=== PATIENT | female | born 1990 | race Caucasian/White ===

== ENCOUNTER 2020-04-23 08:31 | Emergency (ER) | payer BC ==
[2020-04-23 09:07] LABS: APPEARANCE,URINE CLOUDY; BILIRUBIN,URINE NEGATIVE (NEGATIVE); COLOR,URINE AMBER; GLUCOSE, URINE NEGATIVE (NEGATIVE); KETONES,URINE NEGATIVE (NEGATIVE); LEUKOCYTE ESTERASE,URINE SMALL (NEGATIVE); NITRITE,URINE NEGATIVE (NEGATIVE); PROTEIN,URINE 30 mg/dL (NEGATIVE); UROBILINOGEN,URINE NEGATIVE mg/dL (<2.0)
[2020-04-23] MEDS ORDERED: NORMAL SALINE 1000 ML 1,000 ML IV ONE (09:23)
[2020-04-23 09:37] LABS: ABSOLUTE EOSINOPHILS # (AUTO) 0.1 10^3/uL (0.0-0.6); ABSOLUTE LYMPHOCYTES (AUTO) 1.7 10^3/uL (0.5-4.7); ABSOLUTE MONOCYTES (AUTO) 0.5 10^3/uL (0.1-1.4); ABSOLUTE NEUT (AUTO) 7.1 10^3/uL (1.7-8.2); BASOPHILS % (AUTO) 0.4 % (0-2); EOSINOPHILS % (AUTO) 0.8 % (0-6); HEMATOCRIT 39.8 % (36.0-47.0); HEMOGLOBIN 13.9 g/dL (12.0-15.5); LYMPHOCYTES % (AUTO) 18.3 % (13-45); MEAN CORPUSCULAR HEMOGLOBIN 31.6 pg (27.0-33.4); MEAN CORPUSCULAR HGB CONC 34.9 g/dL (32.0-36.0); MEAN CORPUSCULAR VOLUME 91 fl (80-97); PLATELET COUNT 280 10^3/uL (150-450); RED CELL DISTRIBUTION WIDTH 12.5 % (11.5-14.0); SEGMENTED NEUTROPHILS % (AUTO) 75.5 % (42-78); TOTAL CELLS COUNTED % (AUTO) 100 %; WHITE BLOOD COUNT 9.4 10^3/uL (4.0-10.5)
[2020-04-23 09:53] LABS: ALBUMIN 3.9 g/dL (3.5-5.0); ALKALINE PHOSPHATASE 47 U/L (38-126); ANION GAP 8 (5-19); ASPARTATE AMINO TRANSFERASE 27 U/L (14-36); BILIRUBIN,TOTAL 0.5 mg/dL (0.2-1.3); BLOOD UREA NITROGEN 9 mg/dL (7-20); CALCIUM 9.2 mg/dL (8.4-10.2); CARBON DIOXIDE 21 mmol/L (22-30); CHLORIDE 105 mmol/L (98-107); GLUCOSE 102 mg/dL (75-110); POTASSIUM 4.1 mmol/L (3.6-5.0); TOTAL PROTEIN 7.2 g/dL (6.3-8.2)
[2020-04-23] MEDS ORDERED: DEXTROSE 5%-LACTATED RINGERS 1,000 ML IV ONE (10:29)
--- NOTE | 2020-04-23 13:43 | ER Document Report ---
Entered by RAYRAY MCMAHON SCRIBE 04/23/20 1038 Acting as scribe for:DANAY DONAHUE MD ED General - General Chief Complaint: Nausea/Vomiting Stated Complaint: NAUSEA/VOMITING Time Seen by Provider: 04/23/20 09:45 Information source: Patient Notes: This 29 year old female patient presents to the emergency department today with complaints of nausea and vomiting. Patient states she feels dizzy when moving around since yesterday and denies dizziness when laying down. Patient reports vomiting last night and this morning. Patient states she is x21 weeks and denies any vaginal discharge or bleeding. Denies diarrhea, abdominal cramps, fever, chills, headache, or sore throat. Patient states she contacted a Physician by teledoc last night and was told she may have an ear infection ca using her vertigo. - Related Data Allergies/Adverse Reactions: No Known Allergies Allergy (Unverified 04/23/20 09:31) Past Medical History - General Information source: Patient - Social History Smoking Status: Unknown if Ever Smoked Frequency of alcohol use: None Drug Abuse: None Lives with: Family Family History: Reviewed & Not Pertinent Patient has homicidal ideation: No - Medical History Medical History: Negative Past Surgical History: Reports: None Review of Systems - Review of Systems Constitutional: See HPI. denies: Chills, Fever EENT: See HPI. denies: Throat pain Cardiovascular: See HPI, Dizziness Respiratory: No symptoms reported Gastrointestinal: See HPI, Nausea, Vomiting. denies: Abdominal pain, Diarrhea Genitourinary: No symptoms reported Female Genitourinary: See HPI, - x21 weeks. denies: Vaginal discharge, Vaginal bleeding Musculoskeletal: No symptoms reported Skin: No symptoms reported Hematologic/Lymphatic: No symptoms reported Neurological/Psychological: See HPI. denies: Headaches -: Yes All other systems reviewed and negative Physical Exam - Vital signs Vitals: Temp Pulse Resp BP Pulse Ox 97.8 F 83 18 129/78 H 97 04/23/20 08:38 04/23/20 08:38 04/23/20 08:38 04/23/20 08:38 04/23/20 08:38 - General General appearance: Appears well, Alert - HEENT Head: Normocephalic, Atraumatic Eyes: Normal Pupils: PERRL Ears: Normal External canal: Normal Tympanic membrane: Serous effusion - bilateral. No: Bulging Sinus: Other - No frontal sinus tenderness Nasal: Normal Mucous membranes: Dry Pharynx: Normal Neck: Normal - Respiratory Respiratory status: No respiratory distress Chest status: Nontender Breath sounds: Normal Chest palpation: Normal - Cardiovascular Rhythm: Regular Heart sounds: Normal auscultation Murmur: No - Abdominal Inspection: Gravid female - 2nd trimester Distension: No distension Bowel sounds: Normal Tenderness: Nontender - Extremities General upper extremity: Normal inspection. No: Edema General lower extremity: Normal inspection. No: Edema - Neurological Neuro grossly intact: Yes Cognition: Normal Orientation: AAOx4 Speech: Normal - Psychological Associated symptoms: Normal affect, Normal mood - Skin Skin Temperature: Warm Skin Moisture: Dry Skin Color: Normal Course - Re-evaluation Re-evalutation: 04/23/20 13:34 Patient still having nausea and sometimes vomiting with movement. Patient has received 2 L of fluid while in the emergency department so patient is well hydrated at this time. Patient is nontoxic-appearing and hemodynamically stable. Demonstrated to she and her the Apley maneuver for vertigo from benign postural vertigo. Patient tolerated procedure well. And instructed she and her on how to do dismissive maneuver at home. Inasmuch as patient is 21 weeks at at this point in time she is not wanting to take antinausea medications. I explained the patient the Celina maneuver will be helpful as well as using salt on her finger to just quench her nausea as needed. I also advised patient to drink small aliquots of fluid throughout the course of the day and so that she can remain well-hydrated as well as able to take in p.o. food and fluids. - Vital Signs Vital signs: Temp Pulse Resp BP Pulse Ox 97.7 F 78 19 109/72 98 04/23/20 11:34 04/23/20 11:34 04/23/20 11:34 04/23/20 11:34 04/23/20 11:34 - Laboratory Result Diagrams: 04/23/20 09:21 04/23/20 09:21 Laboratory results interpreted by me: 04/23/20 04/23/20 08:50 09:21 Sodium 133.9 L Carbon Dioxide 21 L Urine Protein 30 H Ur Leukocyte Esterase SMALL H 04/23/20 13:37 Urinalysis shows a small amount of leukocyte esterase and there was 3+ bacteria and mucus seen on the urinalysis. Nitrite negative. Patient reports she has no urinary symptoms frequency burning or any kind of malodorous discharge. I explained the patient we will culture her urine and if it turns out that be an infection we will be in touch with her to restart antibiotics. Discharge - Discharge Clinical Impression: Nausea and vomiting, Second trimester , Labyrinthitis, acute viral Condition: Stable Disposition: HOME, SELF-CARE Instructions: Vomiting ([facility]) Additional Instructions: Labyrinthitis Labyrinthitis is a temporary disease of the inner ear. It's sometimes called vestibulitis. It often starts a few days after a cold or virus infection. Symptoms include vertigo (the spinning type of dizziness) or a sense of unsteadiness and nausea. The symptoms usually go away in a couple of days without any treatment. You should rest and keep your head still. The dizziness is worse if you move your head. Closing the eyes usually helps. Don't drive, work with dangerous machinery, or get up on ladders or scaffolds until a few days after the dizziness resolves. Medicine such as meclizine (Antivert, Bonine) can reduce the dizziness and nausea. Tranquilizers (such as diazepam) can suppress your sense of balance, reducing the unpleasantness of the vertigo. Call or return if you develop ear pain, loss of hearing, fever, severe vomiting, or any other new symptom. Discussed with you regarding treatment for labyrinthitis which is often an antihistamine called meclizine. This medication works very well for this condition however inasmuch as you are in your second trimester use of any medication has its risk therefore I am not recommending that you start this medication at this time. I do want you to continue to use small amounts of fluids on a frequent basis to stay well-hydrated and also use of salt just to taste in your mouth to help decrease on nausea so that you may be able to eat without vomiting. Please follow-up with your primary OB gynecology clinic providers regarding if you are having further problems with managing this nausea and vomiting in the face of labyrinthitis. I personally performed the services described in the documentation, reviewed and edited the documentation which was dictated to the scribe in my presence, and it accurately records my words and actions.
[2020-04-23 13:53] VITALS: BP 102/65
[2020-04-23] MEDS ORDERED: MECLIZINE HCL 25 MG TABLET PO ONE (14:20)
== END 2020-04-23 14:57 | disposition home or self-care (01) ==
LOC: ER 08:31
DX: O21.2 Late vomiting of pregnancy (principal); H83.03 Labyrinthitis, bilateral; R42 Dizziness and giddiness; Z3A.21 21 weeks gestation of pregnancy
CPT/HCPCS: 99283; 96360; 96361; 36415; 87086; 85025; 80053; 81001; J7121; J7030

== ENCOUNTER 2020-09-04 18:22 | Inpatient (IN) | payer BC ==
[2020-09-04] MEDS ORDERED: ACETAMINOPHEN 325 MG TABLET PO PRN (18:24)
[2020-09-04] MEDS ORDERED: ZOLPIDEM TARTRATE 5 MG TABLET PO PRN (18:24)
[2020-09-04 19:02] LABS: ABSOLUTE EOSINOPHILS # (AUTO) 0.1 10^3/uL (0.0-0.6); ABSOLUTE LYMPHOCYTES (AUTO) 2.1 10^3/uL (0.5-4.7); ABSOLUTE MONOCYTES (AUTO) 0.6 10^3/uL (0.1-1.4); ABSOLUTE NEUT (AUTO) 7.8 10^3/uL (1.7-8.2); BASOPHILS % (AUTO) 0.2 % (0-2); EOSINOPHILS % (AUTO) 0.9 % (0-6); HEMATOCRIT 37.4 % (36.0-47.0); HEMOGLOBIN 12.7 g/dL (12.0-15.5); MEAN CORPUSCULAR HGB CONC 33.9 g/dL (32.0-36.0); MEAN CORPUSCULAR VOLUME 89 fl (80-97); MONOCYTES % (AUTO) 5.4 % (3-13); PLATELET COUNT 235 10^3/uL (150-450); RED BLOOD COUNT 4.22 10^6/uL (3.72-5.28); RED CELL DISTRIBUTION WIDTH 13.9 % (11.5-14.0); SEGMENTED NEUTROPHILS % (AUTO) 73.5 % (42-78); TOTAL CELLS COUNTED % (AUTO) 100 %; WHITE BLOOD COUNT 10.6 10^3/uL (4.0-10.5)
[2020-09-04 19:02] LABS: APPEARANCE,URINE SLIGHTLY-CLOUDY; BILIRUBIN,URINE NEGATIVE (NEGATIVE); COLOR,URINE YELLOW; GLUCOSE, URINE NEGATIVE (NEGATIVE); KETONES,URINE NEGATIVE (NEGATIVE); LEUKOCYTE ESTERASE,URINE LARGE (NEGATIVE); NITRITE,URINE NEGATIVE (NEGATIVE); PROTEIN,URINE NEGATIVE (NEGATIVE); URINE SPECIFIC GRAVITY 1.005; UROBILINOGEN,URINE NEGATIVE mg/dL (<2.0)
[2020-09-04 19:29] LABS: URINE AMPHETAMINES SCREEN NEGATIVE; URINE BARBITURATES SCREEN NEGATIVE; URINE BENZODIAZEPINES SCREEN NEGATIVE; URINE COCAINE SCREEN NEGATIVE; URINE MARIJUANA (THC) SCREEN NEGATIVE; URINE METHADONE SCREEN NEGATIVE; URINE PHENCYCLIDINE SCREEN NEGATIVE
[2020-09-04] MEDS ORDERED: DINOPROSTONE 10 MG VAGINAL INSERT.SR PV ONE (19:30)
[2020-09-04] MEDS ORDERED: PENICILLIN G POTASSIUM 5,000,000 UNIT in DEXTROSE 5%-WATER 100 ML IV ONE (19:30)
[2020-09-04] MEDS ORDERED: RINGERS SOLUTION,LACTATED 1,000 ML IV ONE (19:30)
[2020-09-04] MEDS ORDERED: OXYTOCIN 10 UNIT/ML VIAL ONE (20:03)
[2020-09-04] MEDS ORDERED: MISOPROSTOL 0.2 MG TABLET ONE (20:03)
[2020-09-04] MEDS ORDERED: DINOPROSTONE 10 MG VAGINAL INSERT.SR ONE (20:04)
[2020-09-04] MEDS ORDERED: LIDOCAINE 1% INJ-PF (10 MG/ML) 30 ML SDV ONE (20:04)
[2020-09-04] MEDS ORDERED: OXYTOCIN/0.9 % SODIUM CHLORIDE 30 UNIT/500 ML RTUINJ ONE (20:04)
[2020-09-04] MEDS: RINGERS SOLUTION,LACTATED 1,000 ML IV PRN (20:11)
--- NOTE | 2020-09-04 20:43 | Admission Physical ---
Datetime Report Generated by CPN: 09/04/2020 20:42 CURRENT ADMISSION Hx Assessment: The History has been Reviewed and is Current Chief Complaint: Scheduled Induction of Labor Indication for Induction: Post Dates Admit Impression : Postterm, Intrauterine Admit Plan: Admit to Unit; Initiate Labor Induction Protocol ALLERGIES Medication Allergies: No Medication Allergies: No Known Allergies (09/04/2020) Latex: No Latex Allergies Food Allergies: n/a Environmental Allergies: Seasonal OBSTETRICAL HISTORY EDC: 08/29/2020 00:00 : 1 Para: 0 Term: 0 : 0 SAB: 0 IAB: 0 Ectopic: 0 Livin Cesareans: 0 VBACs: 0 Multiple Births: 0 Gestational Diabetes: No Rh Sensitization: No Incompetent Cervix: No MARYAN: No Infertility: No ART Treatment: No Uterine Anomaly: No IUGR: No Hx Previous C/S: No Macrosomia: No Hx Loss/Stillborn: No PIH: No Hx : No Placenta Previa/Abruption: No Depression/PP Depression: No PTL/PROM: No Post Hemorrhage: No Current Procedures: Ultrasound; NST Obstetrical History Comments: G1- Current SEE RECORDS Alcohol: No Marijuana : No Cocaine: No Other Illicit Drugs: No Cigarettes: Never Smoker. 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 Heart Disease: No Hosp/Surgery: No Autoimmune Disorder: No Anesthetic Complications: No Kidney Disease: No Abnormal Pap Smear: Yes Neuro/Epilepsy: No Psychiatric Disorders: No Other Medical Diseases: No Hepatitis/Liver Disease: No Significant Family History: No Varicosities/Phlebitis: No Trauma/Violence : No Thyroid Dysfunction: No Medical History Comments: Hx of HPV INFECTIOUS HISTORY Gonorrhea: No Genital Herpes: No Chlamydia: No Tuberculosis: No Syphilis: No Hepatitis: No HIV/AIDS Exposure: No Rash or Viral Illness: No HPV: Yes Infectious History Comments: Hx of HPV PHYSICAL EXAM General: Normal HEENT: Normal Neurologic: Normal Thyroid: Normal Heart: Normal Lungs: Normal Breast: Normal Back: Normal Abdomen: Normal Genitourinary Exam: Normal Extremities: Normal DTRs: Normal Pelvic Type: Adequate Vital Signs: Reviewed; Within Normal Limits VAGINAL EXAM Dilatation: 0 Effacement: 0 Station: -3 Contraction Comments: Irregular MEMBRANES Membranes: Intact Amniotic Fluid Color: Clear FETUS A EGA: 40.6 Monitoring: External US FHR- Baseline: 130 Variability: Moderate 6-25bpm Accelerations: 15X15 Decelerations: None FHR Category: Category I Presentation: Vertex Admit Comment: G1 at 40.6 wks EGA for IOL -Admit to LDR -CEFM and toco -NPO and IVFs: LR at 125 cc/hr after 1 liter bolus -GBS positive, prophylactic antibiotics ordered -Anticipate PLANS FOR LABOR AND DELIVERY Labor and Delivery: None Pain Management: Epidural Feeding Preference: Breast Benefit of Breast Feed Discussed: Yes Circumcision: N/A INFORMED CONSENT Informed Consent Obtained: Vaginal Delivery; Induction of Labor; Vacuum/Forceps Assist; Risks, Benefits and Alternatives Discussed Signature: with User ID: [email or web address] : with User ID: [email or web address]
[2020-09-05] MEDS ORDERED: PENICILLIN G POTASSIUM 5,000,000 UNIT in DEXTROSE 5%-WATER 100 ML IV PRN (09:30)
[2020-09-05] MEDS ORDERED: OXYTOCIN/0.9 % SODIUM CHLORIDE 30 UNIT/500 ML RTUINJ IV PRN (09:36)
--- NOTE | 2020-09-05 10:03 | L&D Progress Notes ---
PROGRESS NOTES Datetime Report Generated by CPN: 09/05/2020 10:02 PROGRESS NOTE Impression: Reassuring Heart Rate Procedures- Other: Jeannie's Catheter placed Plan: Continue Present Management; Induction Informed Consent Obtained: Vaginal Delivery; Induction of Labor; Vacuum/Forceps Assist; Risks, Benefits and Alternatives Discussed Vital Signs : Reviewed; Within Normal Limits Comment: at 41 wks here overnight for IOL. s/p Cervidil, out since 809. Pt up voiding, ate breakfast, doing well, no complainte. +GBS, will start PCN prophlaxis. VE 50/-3, vtx, EFW 8+6. Dennis's cathater placed, w/ 80 ml NS fluid placed in each bulb. Pt tolerated well. Does plan an epidural when in active labor. Will start Pitocin. Position changes encouraged. Attending MD this morning is Dr Man. VAGINAL EXAM Dilatation: 0 Effacement: 0 Station: -3 Contractions: Irregular LAST VAGINAL EXAM-NURSING Nursing Exam Dilitation: 1.0 Nursing Exam Effacement: 50 Nursing Exam Station: -3 Nursing Exam Contractions: UTD ctx pattern. toco adjusted MEMBRANES Membranes: Intact Amniotic Fluid Color: Clear FETUS A FHR - Baseline: 135 Monitoring: External US Variability: Moderate 6-25bpm Accelerations: 15X15 Decelerations: None FHR Category: Category I : 40.6 Presentation: Vertex SIGNATURE SIGNATURE: [id number] Assignment: Sonia Man MD Signature: with User ID: Toro : with User ID: Toro
[2020-09-05] MEDS ORDERED: ONDANSETRON HCL INJ/PF 4 MG/2 ML SDV ONE (11:10)
[2020-09-05] MEDS ORDERED: ONDANSETRON HCL INJ/PF 4 MG/2 ML SDV IV PRN (11:12)
[2020-09-05] MEDS: RINGERS SOLUTION,LACTATED 1,000 ML IV PRN (12:32)
[2020-09-05] MEDS: PENICILLIN G POTASSIUM 2,500,000 UNIT in DEXTROSE 5%-WATER 50 ML IV SCH ×4 (12:35→23:18)
--- NOTE | 2020-09-05 14:30 | L&D Progress Notes ---
PROGRESS NOTES Datetime Report Generated by CPN: 09/05/2020 14:29 PROGRESS NOTE Impression: Reassuring Heart Rate Procedures- Other: Dennis's Catheter placed Plan: Continue Present Management; Induction Informed Consent Obtained: Vaginal Delivery; Induction of Labor; Vacuum/Forceps Assist; Risks, Benefits and Alternatives Discussed Vital Signs : Reviewed; Within Normal Limits Comment: 41 wk IOL, Pitcoin infusing, Dennis's catheter remains in placex 4 hours now. Pt sitting on birthing ball, doing well and remains comfortable. PCN second dose infusing. Yovani lcontinue with Pitocin. PCN q 4 hours until delivery. Positoin changes encouraged. VAGINAL EXAM Dilatation: 0 Effacement: 0 Station: -3 Contractions: Irregular LAST VAGINAL EXAM-NURSING Nursing Exam Dilitation: 1.0 Nursing Exam Effacement: 50 Nursing Exam Station: -3 Nursing Exam Contractions: RN at bedside palpating contractions MEMBRANES Membranes: Intact Amniotic Fluid Color: Clear FETUS A FHR - Baseline: 135 Monitoring: External US Variability: Moderate 6-25bpm Accelerations: 15X15 Decelerations: None FHR Category: Category I : 40.6 Presentation: Vertex SIGNATURE SIGNATURE: [id number];[id number] Assignment: Sonia Man MD Signature: with User ID: Toro : with User ID: Toro
--- NOTE | 2020-09-05 16:11 | L&D Progress Notes ---
PROGRESS NOTES Datetime Report Generated by CPN: 09/05/2020 16:11 PROGRESS NOTE Impression: Reassuring Heart Rate Procedures: Sterile Vag Exam Procedures- Other: Dennis's cathater removed Plan: Continue Present Management; Induction Plan Other: pt may have an epidural, continue PCN a 4 hours Informed Consent Obtained: Vaginal Delivery; Induction of Labor; Vacuum/Forceps Assist; Risks, Benefits and Alternatives Discussed Vital Signs : Reviewed; Within Normal Limits Comment: Pt now breathing thru contractions. VE, caridad's cathater deflated and removed. VE 480/-2, vtx. +bloody show. Pt may have an epidural. Then AROM once comfortable. Continue PCN q 4 hours until delivery. Will update Dr Man on pt status. s VAGINAL EXAM Dilatation: 4 Effacement: 80 Station: -2 Contractions: Irregular LAST VAGINAL EXAM-NURSING Nursing Exam Dilitation: 4.0 Nursing Exam Effacement: 80 Nursing Exam Station: -2 Nursing Exam Contractions: RN at bedside palpating contractions MEMBRANES Membranes: Intact Amniotic Fluid Color: Clear FETUS A FHR - Baseline: 145 Monitoring: External US Variability: Moderate 6-25bpm Accelerations: 15X15 Decelerations: None FHR Category: Category I : 40.6 Presentation: Vertex SIGNATURE SIGNATURE: [id number];[id number] Assignment: Sonia Man MD Signature: with User ID: [email or web address] : with User ID: Toro
[2020-09-05] MEDS ORDERED: FENTANYL/BUPIVACAINE/NS/PF 300 MCG/150 ML RTUINJ EPI ONE (16:22)
[2020-09-05] MEDS ORDERED: ROPIVACAINE HCL 0.2% INJ/PF (2 MG/ML) 20 ML SDV ONE (16:22)
[2020-09-05] MEDS ORDERED: EPHEDRINE SULFATE INJ 50 MG/1 ML AMPULE ONE (16:22)
[2020-09-05] MEDS ORDERED: MISOPROSTOL 0.1 MG TABLET PV ONE (20:15)
[2020-09-05] MEDS ORDERED: MISOPROSTOL 0.1 MG TABLET PO ONE (20:19)
[2020-09-05] MEDS ORDERED: MISOPROSTOL 0.1 MG TABLET ONE (20:30)
[2020-09-06] MEDS ORDERED: MISOPROSTOL 0.1 MG TABLET ONE (01:19)
[2020-09-06] MEDS: PENICILLIN G POTASSIUM 2,500,000 UNIT in DEXTROSE 5%-WATER 50 ML IV SCH ×4 (03:18→13:47)
[2020-09-06] MEDS ORDERED: OXYTOCIN/0.9 % SODIUM CHLORIDE 30 UNIT/500 ML RTUINJ ONE (05:56)
[2020-09-06] MEDS ORDERED: FENTANYL/BUPIVACAINE/NS/PF 300 MCG/150 ML RTUINJ EPI ONE (10:40)
[2020-09-06] MEDS ORDERED: ROPIVACAINE HCL 0.2% INJ/PF (2 MG/ML) 20 ML SDV ONE (11:01)
[2020-09-06] MEDS ORDERED: PROMETHAZINE HCL INJ 25 MG/1 ML VIAL IV ONE (11:10)
[2020-09-06] MEDS ORDERED: PROMETHAZINE HCL INJ 25 MG/1 ML VIAL ONE (11:10)
[2020-09-06] MEDS ORDERED: BUTALB/ACETAMINOPHEN/CAFFEINE 1 TAB EACH ONE ×2 (12:36→19:13)
[2020-09-06] MEDS ORDERED: BUTALB/ACETAMINOPHEN/CAFFEINE 1 TAB EACH PO ONE (12:37)
[2020-09-06] MEDS ORDERED: EPHEDRINE SULFATE INJ 50 MG/1 ML AMPULE ONE (13:14)
[2020-09-06] MEDS ORDERED: ZOLPIDEM TARTRATE 5 MG TABLET PO PRN (15:10)
[2020-09-06] MEDS ORDERED: BENZOCAINE/MENTHOL AEROSOL SPRAY 56 ML TOP PRN (15:10)
[2020-09-06] MEDS ORDERED: MEASLES,MUMPS&RUBELLA VACC/PF 0.5 ML VIAL SUBCUT PRN (15:10)
[2020-09-06] MEDS ORDERED: PROMETHAZINE HCL 25 MG SUPP.RECT PR PRN (15:10)
[2020-09-06] MEDS ORDERED: PSEUDOEPHEDRINE HCL 30 MG TABLET PO PRN (15:10)
[2020-09-06] MEDS ORDERED: GLYCERIN/WITCH HAZEL LEAF 1 EACH MED..WIPE TP PRN (15:10)
[2020-09-06] MEDS ORDERED: DIPH/PERTUSS(ACELL)/TETANUS VAC/PF 0.5 ML SYR (>=10YO) IM PRN (15:10)
[2020-09-06] MEDS ORDERED: NA PHOS,M-B/NA PHOS,DI-BA (ADULT) 133 ML ENEMA PR PRN (15:10)
[2020-09-06] MEDS ORDERED: DIBUCAINE 1% OINTMENT 28 GM TP PRN (15:10)
[2020-09-06] MEDS ORDERED: PROMETHAZINE HCL 25 MG TABLET PO PRN (15:10)
[2020-09-06] MEDS ORDERED: DIPHENHYDRAMINE HCL 25 MG CAPSULE PO PRN (15:10)
[2020-09-06] MEDS ORDERED: OXYTOCIN/0.9 % SODIUM CHLORIDE 30 UNIT/500 ML RTUINJ IV PRN (15:10)
[2020-09-06] MEDS ORDERED: PROMETHAZINE HCL INJ 25 MG/1 ML VIAL IV PRN (15:10)
[2020-09-06] MEDS ORDERED: MAGNESIUM HYDROXIDE SUSP 30 ML UDCUP PO PRN (15:10)
[2020-09-06] MEDS ORDERED: ACETAMINOPHEN 650 MG SUPP.RECT PR PRN (15:10)
--- NOTE | 2020-09-06 15:35 | Warning Signs in Babies ---
VOD Warning Signs Datetime Report Generated by [facility]: 09/06/2020 15:35 VOD#608 -Warning Signs in Babies: Viewed with Parent(s)/Family (09/04/2020 14:03:Gabriela Bae RN)
[2020-09-06] MEDS ORDERED: IBUPROFEN 800 MG TABLET ONE (18:07)
[2020-09-06] MEDS ORDERED: BENZOCAINE/MENTHOL AEROSOL SPRAY 56 ML ONE (18:08)
--- NOTE | 2020-09-06 19:00 | Birth Certificate Data ---
Cert Data Datetime Report Generated by CPN: 09/06/2020 18:59 CERTIFICATE DATA Delivery Provider: Yordan Fishman MD (09/04/2020 14:03:Gabriela Bae RN) 47a. Care: Yes (09/04/2020 14:03:Dallas Rodriguez RN) 47b. Date of First Visit: 02/18/2020 00:00 (09/04/2020 14:03:Dallas Rodriguez RN) 47c. Date of Last Visit: 09/02/2020 00:00 (09/04/2020 14:03:Dallas Rodriguez RN) 47d. Number of Visits: 12 (09/04/2020 14:03:Dallas Rodriguez RN) 48a. Number of Prev Live Births: 0 (09/04/2020 14:03:Dallas Rodriguez RN) 48b. Now Livin (09/04/2020 14:03:Dallas Rodriguez RN) 48c. Live Births Now : 0 (09/04/2020 14:03:QS system process) 48e. Losses: 0 (09/04/2020 14:03:Dallas Rodriguez RN) RISK FACTORS IN THIS 49a. Diabetes: No (09/04/2020 14:03:Luz Morin RN) 49b. Hypertension: No (09/04/2020 14:03:Luz Morin RN) 49c. Previous Births: 0 (09/04/2020 14:03:Dallas Rodriguez RN) 49d. Stillborns: No (09/04/2020 14:03:Luz Morin RN) 49d. IUGR: No (09/04/2020 14:03:Luz Morin RN) 49e. Infertility Treatment: No (09/04/2020 14:03:Luz Morin RN) 49f. Previous Cesareans: 0 (09/04/2020 14:03:Dallas Rodriguez RN) Mother's Height 50b. Height Inches: 67 (09/06/2020 17:44:QS system process) Mother's Weight 51a. Pre- Weight (lbs): 216 (09/04/2020 14:03:Dallas Rodriguez RN) 51b. Weight at Delivery (lbs): 257 (09/06/2020 17:44:QS system process) 52. Dt Last Normal Menses Began: 11/30/2019 00:00 (09/04/2020 14:03:Dallas Rodriguez RN) Infections Present/Treated 53a. Gonorrhea: No (09/04/2020 14:03:Luz Morin RN) Results this Hospital Visit : Negative (09/04/2020 14:03:Dallas Rodriguez RN) 53b. Syphilis: No (09/04/2020 14:03:Luz Morin RN) Results this Hospital Visit: NONREACTIVE (09/04/2020 18:46:QS system process) 53c. Chlamydia: No (09/04/2020 14:03:Luz Morin RN) Results this Hospital Visit: Negative (09/04/2020 14:03:Dallas Rodriguez RN) 53d. Hepatitis B: No (09/04/2020 14:03:Luz Morin RN) Results this Hospital Visit: Negative (09/04/2020 14:03:Dallas Rodriguez RN) 53e. Hepatitis C: Negative (09/04/2020 14:03:Dallas Rodriguez RN) 53h. Mother Tested for HBsAG: Yes (09/04/2020 14:03:Dallas Rodriguez RN) 53i. Date Tested: 02/18/2020 00:00 (09/04/2020 14:03:Dallas Rodriguez RN) 53j. Test Result: Negative (09/04/2020 14:03:Dallas Rodriguez RN) Obstetric Procedures 54a, b, c. Obstetric Procedures: Ultrasound; NST (09/04/2020 14:03:Dallas Rodriguez RN) Cigarette Smoking Cigarette Smoking: Never Smoker. [id number] (09/04/2020 14:03:Dallas Rodriguez RN) 55a. 3 Months Before Preg - Ci (09/04/2020 14:03:Dallas Rodriguez RN) 55b. 1st Trimester of Preg- Ci (09/04/2020 14:03:Dallas Rodriguez RN) 55c. 2nd Trimester of Preg- Ci (09/04/2020 14:03:Dallas Rodriguez RN) 55d. 3rd Trimester of Preg- Ci (09/04/2020 14:03:Dallas Rodriguez RN) Onset of Labor 56a. PROM >12 Hrs: 8.80 (09/04/2020 14:03:QS system process) 56b. Precipitous Labor <3 Hrs: 6 (09/04/2020 14:03:QS system process) 56c. Prolonged Labor > 20 Hrs: 6 (09/04/2020 14:03:QS system process) 57a. Induction of Labor: Induction (09/04/2020 14:03:Gabriela Bae RN) 57a. Induction of Labor: Cervidil; Cytotec @ (09/06/2020 01:31:Gabriela Bae RN) 57c. Non-Vertex Presentation A: Vertex (09/04/2020 14:03:Gabriela Bae RN) 57d. Steroids - Lung Mat: None (09/04/2020 14:03:Gabriela Bae RN) 57d. Steroids - Lung Mat: Not Applicable (09/04/2020 14:03:Gabriela Bae RN) 57e. Antibiotics During Labor: 09/06/2020 13:47 (09/04/2020 14:03:Gabriela Bae RN) 57f. Mat [place] or Temp >100.4: 99.6 (09/04/2020 14:03:Gabriela Bae RN) 57g. Moderate/Heavy Meconium: Heavy Meconium (09/06/2020 08:44:Gabriela Bae RN) 57h. Intolerance of Labor: N/A (09/04/2020 14:03:RIAN Fournier) : N/A (09/04/2020 14:03:RIAN Fournier) 57i. Epidural/Spinal Anesthesia: Epidural (09/04/2020 14:03:Gabriela Bae RN) Method of Delivery 58a. Forceps - Unsuccessful A: N/A (09/04/2020 14:03:Gabriela Bae RN) 58b. Vacuum - Unsuccessful A: N/A (09/04/2020 14:03:Gabriela Bae RN) 58c. Presentation at 58c. Presentation at - A : Vertex (09/04/2020 14:03:Gabriela Bae RN) 58c. Presentation at - A : N/A (09/04/2020 14:03:RIAN Fournier) 58c. Presentation at - A : Cephalic (09/04/2020 14:03:Gabriela Bae RN) Final Route and Method of Del 58d. Baby A Route/Delivery: Vaginal (09/06/2020 17:32:Gabriela Bae RN) 58e. Trial of Labor Attempted: No (09/04/2020 14:03:Gabriela Bae RN) 58e. Trial of Labor Attempted A: N/A (09/04/2020 14:03:Gabriela Bae RN) 58e. Trial of Labor Attempted B: N/A (09/04/2020 14:03:Gabriela Bae RN) Maternal Morbidity 59b. 3rd or 4th Degree Lacs: Perineal (09/04/2020 14:03:Gabriela Bae RN) Birthweight Baby A: 3550 (09/04/2020 14:03:Kelley Snyder RN) 60a. Pounds : 7 (09/04/2020 14:03:QS system process) 60b. Ounces: 13 (09/04/2020 14:03:QS system process) 61. GA at Delivery Baby A: 41.1 (09/04/2020 14:03:Gabriela Bae RN) : Late Term- 41- 41.6 Weeks (09/04/2020 14:03:QS system process) 62a. 5 Minute Baby A: 9 (09/04/2020 14:03:QS system process)
--- NOTE | 2020-09-06 19:00 | Delivery Summary ---
Del Sum A-C Datetime Report Generated by CPN: 09/06/2020 18:59 DELIVERY PERSONNEL DELIVERY PERSONNEL: [id number] Delivery Doctor:: Yordan Fishman MD Labor and Delivery Nurse:: Gabriela Bae RNmiter operator Nurse:: RIAN Tyson Nursery Nurse:: Kelley Snyder RN Stemming Machine Operator/SPLITTING MACHINE OPERATOR HELPER: Delia Dunn, [employer] MATERNAL INFORMATION Delivery Anesthesia: Epidural Medications After Delivery: Pitocin Bolus-Please Comment; Pitocin 30 Units in 500ml NS/D5W Delivery QBL: 300 Maternal Complications: Other LABOR SUMMARY EDC: 08/29/2020 00:00 No. Babies in Womb: 1 Attempted: No Labor Anesthesia: Epidural LABOR INFORMATION Reason for Induction: Post Dates Onset of Labor: 09/06/2020 11:00 Complete Dilatation: 09/06/2020 15:55 Cervical Ripening Agents: Cervidil; Cytotec @ Oxytocin: Induction Group B Beta Strep: Positive Antibiotics # of Doses: 7 Antibiotics Time of Last Dose: 09/06/2020 13:47 Name of Antibiotic Given: Penicillin Steroids Given: None Reason Steroids Not Administered: Not Applicable MEMBRANES Membranes Rupture Method: Spontaneous Rupture of Membranes: 09/06/2020 08:44 Length of Rupture (hr): 8.80 Amniotic Fluid Color: Heavy Meconium Amniotic Fluid Amount: Moderate Amniotic Fluid Odor: Normal STAGES OF LABOR Stage 1 hr: 4 Stage 1 min: 55 Stage 2 hr: 1 Stage 2 min: 37 Stage 3 hr: 0 Stage 3 min: 3 Total Time in Labor hr: 6 Total Time in Labor min: 35 VAGINAL DELIVERY Episiotomy: None Laceration #1: Perineal Laceration Extension #1: First Degree Laceration Repair: Yes Sponge Count Correct: N/A Sharps Count Correct: N/A CSECTION DELIVERY Primary Indication: N/A Secondary Indication: N/A CSection Incidence: N/A Labor: N/A Elective: N/A CSection Incision: N/A BABY A INFORMATION Infant Delivery Date/Time: 09/06/2020 17:32 Method of Delivery: Vaginal Nurse Controlled Delivery: No Born in Route : No : N/A Forceps: N/A Vacuum Extraction: N/A Shoulder Dystocia : No PRESENTATION/POSITION BABY A Presentation: Cephalic Cephalic Presentation: Vertex Vertex Position: Left Occipital Anterior Breech Presentation: N/A PLACENTA INFORMATION BABY A Placenta Delivery Time : 09/06/2020 17:35 Placenta Method of Delivery: Spontaneous Placenta Status: Delivered SCORES BABY A Heart Rate 1 min: >100 bpm Resp Effort 1 min: Good Cry Reflex Irritability 1 min: Cough or Sneeze or Pulls Away Muscle Tone 1 min: Active Motion Color 1 min: Body [place], Extremities Blue SCORE 1 MIN: 9 Heart Rate 5 min: >100 bpm Resp Effort 5 min: Good Cry Reflex Irritability 5 min: Cough or Sneeze or Pulls Away Muscle Tone 5 min: Active Motion Color 5 min: Body [place], Extremities Blue SCORE 5 MIN: 9 INFORMATION BABY A Gestational Age at Delivery: 41.1 Gestational Status: Late Term- 41- 41.6 Weeks Outcome : Liveborn Condition : Stable Sex: Female IDENTIFICATION BABY A Verification Date/Time: 09/06/2020 18:06 ID Band Number: [id number] Mother's Name Verified: Yes RN Verifying : Amish ChristineJansenSHARLA sheets Additional Verifying Personnel: Edin Trammell, RN WEIGHT/LENGTH BABY A Infant Birthweight (gm): 3550 Weight (lb): 7 Weight (oz): 13 Length (in): 21.00 Infant Length (cm): 53.34 CORD INFORMATION BABY A No. Cord Vessels: 3 Nuchal Cord : N/A Cord Blood Taken: Yes-For Storage (Mom's Blood type +) Infant Suction: Mouth; Nose ASSESSMENT BABY A Infant Complications: None Physical Findings at Delivery: Within Normal Limits Skin to Skin: Yes Skin to Skin Time (min): 60 Infant Care By: Brian Snyder RN Transferred To: Remains with Mother BABY B INFORMATION : N/A SIGNATURES Signature: with User ID: [email or web address]
[2020-09-06] MEDS: FAMOTIDINE 20 MG TABLET PO SCH (21:29)
[2020-09-06] MEDS: DOCUSATE SODIUM 100 MG CAPSULE PO SCH (21:30)
[2020-09-06] MEDS: FERROUS SULFATE 325 MG TABLET PO SCH (21:30)
[2020-09-06] MEDS ORDERED: IBUPROFEN 800 MG TABLET PO SCH (22:00)
[2020-09-06] MEDS: ACETAMINOPHEN WITH CODEINE #3 TABLET PO PRN (23:29)
[2020-09-07] MEDS: IBUPROFEN 800 MG TABLET PO SCH ×3 (01:08→17:18)
[2020-09-07] MEDS: ACETAMINOPHEN WITH CODEINE #3 TABLET PO PRN ×3 (03:23→15:58)
[2020-09-07 08:07] LABS: HEMATOCRIT 32.3 % (36.0-47.0); MEAN CORPUSCULAR HEMOGLOBIN 29.1 pg (27.0-33.4); MEAN CORPUSCULAR HGB CONC 32.8 g/dL (32.0-36.0); MEAN CORPUSCULAR VOLUME 89 fl (80-97); PLATELET COUNT 209 10^3/uL (150-450); RED BLOOD COUNT 3.64 10^6/uL (3.72-5.28); RED CELL DISTRIBUTION WIDTH 13.7 % (11.5-14.0); WHITE BLOOD COUNT 15.5 10^3/uL (4.0-10.5)
[2020-09-07 08:09] LABS: HEMOGLOBIN 10.6 g/dL (12.0-15.5)
[2020-09-07] MEDS: PRENATAL VITAMIN W DHA CAPSULE PO SCH (09:13)
[2020-09-07] MEDS: DOCUSATE SODIUM 100 MG CAPSULE PO SCH ×2 (09:13→17:18)
[2020-09-07] MEDS: FAMOTIDINE 20 MG TABLET PO SCH ×2 (09:14→21:01)
[2020-09-07] MEDS: FERROUS SULFATE 325 MG TABLET PO SCH ×2 (09:23→17:18)
[2020-09-07] MEDS: SENNOSIDES/DOCUSATE 8.6-50 MG 1 EACH TABLET PO SCH (09:23)
--- NOTE | 2020-09-07 10:18 | PDOC PROGRESS REPORT ---
Subjective-OB Progress Note for:: 09/07/20 Subjective: 29yo G1 now P1 s/p ppd 1. Pt ambulating and voiding without difficulty. Reports minimal bleeding and no discomfort at laceration site. Just had blood patch for wet tap, headache still present, no other concerns today. Physical Exam (OB) Vital Signs: Temp Pulse Resp BP Pulse Ox 98.0 F 88 16 141/87 H 100 09/07/20 08:09 09/07/20 08:09 09/07/20 08:09 09/07/20 08:09 09/07/20 08:09 Intake & Output 09/06/20 09/07/20 09/08/20 06:59 06:59 06:59 Intake Total 1000 650 Balance 1000 650 - General General Appearance: Appears well - PIH/Pre-Eclampsia Clonus: Negative Headache: Present Epigastric Pain: No Visual Changes: No - Maternal Morbidity 59. Maternal Morbidity (serious complications experinced by the mother associated with labor and delivery: None of the above - Episiotomy/Laceration Site Condition: Well Approximated - Lochia Lochia Amount: Scant < 10 ml Lochia Color: Rubra/Red - Abdomen Description: Soft Hernia Present: No Fundal Description: Firm, Midline Fundal Height: u/u - u/2 - Respiratory Respiratory Status: No respiratory distress - Extremities Upper extremity: Normal inspection Lower extremities: Normal inspection - Neurological Cognition: Normal Orientation: AAOx4 - Psychological Associated symptoms: Normal affect, Normal mood Objective-Diagnostic Laboratory: 09/07/20 07:26 09/07/20 07:26 WBC 15.5 H RBC 3.64 L Hgb 10.6 L D Hct 32.3 L MCV 89 MCH 29.1 MCHC 32.8 RDW 13.7 Plt Count 209 Assessment and Plan(PN) - Assessment and Plan (1) Perineal laceration during delivery, delivered Is this a current diagnosis for this admission?: Yes Plan: routine pp care continue to monitor for s/s of infection (2) Vaginal delivery Is this a current diagnosis for this admission?: Yes Plan: routine pp care (3) 41 weeks gestation of Is this a current diagnosis for this admission?: Yes Plan: delivered (4) Group beta Strep positive Is this a current diagnosis for this admission?: Yes Plan: delivered - Time Spent with Patient Time with patient: Less than 15 minutes Medications reviewed and adjusted accordingly: Yes - Disposition Anticipated Discharge Disposition: Home, Self Care Anticipated Discharge Timeframe: within 24 hours
[2020-09-08] MEDS: IBUPROFEN 800 MG TABLET PO SCH ×2 (01:29→10:31)
--- NOTE | 2020-09-08 09:39 | PDOC DISCHARGE SUMMARY ---
Impression - Admit/DC Date/PCP Admission Date/Primary Care Provider: 09/04/20 18:22 EVAN LEONARD MD Discharge Date: 09/08/20 - PP Day #2 , doing well, UOB , voiding, - Additional Information Resuscitation Status: Full Code Discharge Diet: As Tolerated, Regular Discharge Activity: Activity As Tolerated, No Lifting Over 10 Pounds, Pelvic Rest Referrals: EVAN LEONARD MD [Primary Care Provider] - Prescriptions: Ibuprofen [Motrin 800 mg Tablet] 800 mg PO Q8A #60 tablet Home Medications: Cetirizine HCl [Zyrtec 10 mg Tablet] 10 mg PO DAILY 04/23/20 Pnv No.95/Ferrous Fum/Folic AC [ Vitamin Tablet] 1 each PO DAILY 04/23/20 Ibuprofen [Motrin 800 mg Tablet] 800 mg PO Q8A #60 tablet 09/08/20 HPI Reason(s) for Admission: Induction of Labor Procedures: NST, Ultrasound Intrapartum Procedure(s): Spontaneous Vaginal Delivery Complication(s): Laceration-Vaginal Laceration-Degree: 1st Hospital Course 59. Maternal Morbidity (serious complications experinced by the mother associated with labor and delivery: None of the above Results Laboratory Results: WBC 15.5 10^3/uL (4.0-10.5) H 09/07/20 07:26 RBC 3.64 10^6/uL (3.72-5.28) L 09/07/20 07:26 Hgb 10.6 g/dL (12.0-15.5) L D 09/07/20 07:26 Hct 32.3 % (36.0-47.0) L 09/07/20 07:26 MCV 89 fl (80-97) 09/07/20 07:26 MCH 29.1 pg (27.0-33.4) 09/07/20 07:26 MCHC 32.8 g/dL (32.0-36.0) 09/07/20 07:26 RDW 13.7 % (11.5-14.0) 09/07/20 07:26 Plt Count 209 10^3/uL (150-450) 09/07/20 07:26 Lymph % (Auto) 20.0 % (13-45) 09/04/20 18:46 [place] % (Auto) 5.4 % (3-13) 09/04/20 18:46 Eos % (Auto) 0.9 % (0-6) 09/04/20 18:46 Baso % (Auto) 0.2 % (0-2) 09/04/20 18:46 Absolute Neuts (auto) 7.8 10^3/uL (1.7-8.2) 09/04/20 18:46 Absolute Lymphs (auto) 2.1 10^3/uL (0.5-4.7) 09/04/20 18:46 Absolute Monos (auto) 0.6 10^3/uL (0.1-1.4) 09/04/20 18:46 Absolute Eos (auto) 0.1 10^3/uL (0.0-0.6) 09/04/20 18:46 Absolute Basos (auto) 0.0 10^3/uL (0.0-0.2) 09/04/20 18:46 Seg Neutrophils % 73.5 % (42-78) 09/04/20 18:46 Urine Color YELLOW 09/04/20 18:34 Urine Appearance SLIGHTLY-CLOUDY 09/04/20 18:34 Urine pH 6.0 (5.0-9.0) 09/04/20 18:34 Ur Specific [place] 1.005 09/04/20 18:34 Urine Protein NEGATIVE mg/dL (NEGATIVE) 09/04/20 18:34 Urine Glucose (UA) NEGATIVE mg/dL (NEGATIVE) 09/04/20 18:34 Urine Ketones NEGATIVE mg/dL (NEGATIVE) 09/04/20 18:34 Urine Blood NEGATIVE (NEGATIVE) 09/04/20 18:34 Urine Nitrite NEGATIVE (NEGATIVE) 09/04/20 18:34 Urine Bilirubin NEGATIVE (NEGATIVE) 09/04/20 18:34 Urine Urobilinogen NEGATIVE mg/dL (<2.0) 09/04/20 18:34 Ur Leukocyte Esterase LARGE (NEGATIVE) H 09/04/20 18:34 Urine Ascorbic Acid NEGATIVE (NEGATIVE) 09/04/20 18:34 Urine Opiates Screen NEGATIVE 09/04/20 18:34 Urine Methadone Screen NEGATIVE 09/04/20 18:34 Ur Barbiturates Screen NEGATIVE 09/04/20 18:34 Ur Phencyclidine Scrn NEGATIVE 11/15/20 18:34 Ur Amphetamines Screen NEGATIVE 09/04/20 18:34 U Benzodiazepines Scrn NEGATIVE 09/04/20 18:34 Urine Cocaine Screen NEGATIVE 09/04/20 18:34 U Marijuana (THC) Screen NEGATIVE 09/04/20 18:34 RPR NONREACTIVE (NONREACTIVE) 09/04/20 18:46 Blood Type A POSITIVE 09/04/20 18:46 Antibody Screen NEGATIVE 09/04/20 18:46 Plan Plan of Treatment: d/c home, f/up with [facility] in 4 wks for PP check Time Spent: Less than 30 Minutes
[2020-09-08] MEDS: FAMOTIDINE 20 MG TABLET PO SCH (10:31)
[2020-09-08] MEDS: FERROUS SULFATE 325 MG TABLET PO SCH (10:31)
[2020-09-08] MEDS: DOCUSATE SODIUM 100 MG CAPSULE PO SCH (10:31)
[2020-09-08] MEDS: PRENATAL VITAMIN W DHA CAPSULE PO SCH (10:31)
[2020-09-08] MEDS: SENNOSIDES/DOCUSATE 8.6-50 MG 1 EACH TABLET PO SCH (10:31)
[2020-09-08 12:00] VITALS: BP 143/73
== END 2020-09-08 12:58 | disposition home or self-care (01) | DRG 807 ==
LOC: LR 18:22 → 2S 09-06 21:02
PROVIDERS: ADMIT Obstetrics & Gynecology; ATTEND Obstetrics & Gynecology
PROC: 10E0XZZ Delivery of Products of Conception, External Approach (ICD-10-PCS; principal; 2020-09-06)
PROC: 0HQ9XZZ Repair Perineum Skin, External Approach (ICD-10-PCS; 2020-09-06)
PROC: 3E033VJ Introduction of Other Hormone into Peripheral Vein, Percutaneous Approach (ICD-10-PCS; 2020-09-06)
DX: O48.0 Post-term pregnancy (principal); Z37.0 Single live birth; O70.0 First degree perineal laceration during delivery; O99.824 Streptococcus B carrier state complicating childbirth; Z20.828 Contact with and (suspected) exposure to other viral communicable diseases; Z28.21 Immunization not carried out because of patient refusal; Z3A.41 41 weeks gestation of pregnancy
CPT/HCPCS: 1967; 36415; 62273; 80307; 81005; 85025; 85027; 86592; 86850; 86900; 86901; J2405; J2540; J2550; J2590; J2795; J3010; J3490; J7060